=== PATIENT | male | born 1995 | race Caucasian/White ===

== ENCOUNTER 2021-09-22 20:03 | Emergency (ER) | payer BC ==
[~2021-09-22] VITALS: Ht 180.3 cm; Wt 65.8 kg
[2021-09-22] MEDS ORDERED: SINGULAIR 10 MG10 MG PO (20:20)
[2021-09-22] MEDS ORDERED: CLARITIN10 M3 PO (20:20)
[2021-09-22] MEDS ORDERED: SYMBICORT160 MCG/4. INH (20:20)
[2021-09-22] MEDS ORDERED: VENTOLIN HFA INH8 GM INH (20:21)
[2021-09-22] MEDS ORDERED: NASACORT10.8 ML NASAL (20:21)
[2021-09-22] MEDS ORDERED: ZYRTEC10 M2 PO (20:21)
[2021-09-22] MEDS ORDERED: XOLAIR150 MG/1 M SUBQ (20:22)
[2021-09-22] MEDS ORDERED: ALBUTEROL2.5 MG/31 INH (20:22)
[2021-09-22] MEDS ORDERED: BACTRIM DS TAB1 EAC1 PO (20:27)
[2021-09-22] MEDS ORDERED: KETOCONAZOLE15 GM TOP (20:27)
[2021-09-22 20:41] VITALS: BP 117/70
== END 2021-09-22 20:38 | disposition home or self-care (01) ==
LOC: ER 20:03
DX: B35.3 Tinea pedis (principal); J45.909 Unspecified asthma, uncomplicated; Z88.1 Allergy status to other antibiotic agents